=== PATIENT | female | born 1990 | race American Indian/Alaskan Native ===

== ENCOUNTER 2017-05-07 20:01 | Emergency (ER) | payer MEDICAID, OTHER ==
[2017-05-07 20:01] VITALS: BMI 21.2
[2017-05-07 20:33] VITALS: RESP 16; TEMP 98
--- NOTE | 2017-05-07 21:25 | ED PDOC ---
Arrival/HPI - General Chief Complaint: Female Genitourinary Time Seen by Provider: 05/07/17 21:05 - History of Present Illness Narrative History of Present Illness (Text): 26 y/o F p/w lower abdominal pain in . Patient states she walked up a big hill and after taking a nap, woke up with pain in the L lower abdomen, sharp, worse with movement, constant. Denies bleeding, dysuria, new vomiting, bowel movement changes. No US yet for this , estimates 8 weeks . Past Medical History - Past History Past History: No Previous - Infectious Disease Hx of Infectious Diseases: None - Tetanus Immunization Tetanus Immunization: Unknown - Past Medical History Past Medical History: No Previous - Integumentary Hx Psoriasis: Yes - Musculoskeletal/Rheumatological Hx Musculoskeletal Disorders: No - Psychiatric Hx Depression: No Hx Emotional Abuse: No Hx Physical Abuse: No Hx Substance Use: No - Past Surgical History Past Surgical History: No Previous - Anesthesia Hx Anesthesia: No - Suicidal Assessment Feels Threatened In Home Enviroment: No Family/Social History Family/Social History: No Known Family HX Smoking Status: Never Smoked Hx Alcohol Use: No Hx Substance Use: No Allergies/Home Meds Allergies/Adverse Reactions: Allergies shellfish derived Allergy (Verified 05/07/17 20:30) ANAPHYLAXIS seafood Allergy (Uncoded 05/07/17 20:30) ANGIOEDEMA Home Medications: Home Meds Medication Instructions Recorded Confirmed Vit No.126/Iron/Folic 1 tab PO DAILY 05/07/17 05/07/17 [Classic Tablet] Review of Systems - Physician Review All systems were reviewed & negative as marked: Yes - Review of Systems Constitutional: absent: Fevers Cardiovascular: absent: Chest Pain Physical Exam - Physical Exam Narrative Physical Exam (Text): 05/07/17 21:25 Constitutional: No acute distress. Head: Normocephalic. Atraumatic. Eyes: PERRL. ENT: Moist mucous membranes. Neck: Supple. Cardiovascular: Regular rate. Chest: No tenderness. Respiratory: Clear to auscultation bilaterally. GI: Soft. Nontender. Nondistended. Back: No CVA tenderness. Musculoskeletal: No tenderness or swelling of extremities. Skin: No rash. Neurologic: Alert, no focal deficit. Vital Signs Temp Pulse Resp BP Pulse Ox 05/07/17 20:30 98.0 F 86 16 109/72 100 Medical Decision Making ED Course and Treatment: 05/07/17 21:25 Plan: -- Labs -- Urine Culture -- Urinalysis -- OB Transvaginal US -- Reassess and disposition Progress Notes: EXAM: US , Transvaginal Dictated and Authenticated by: Aspen Spears MD 05/08/2017 12:25 AM IMPRESSION: Single live IUP - Lab Interpretations Lab Results: 05/07/17 21:35 05/07/17 21:35 Lab Results 05/08/17 00:40: Urine Color Yellow, Urine Appearance Clear, Urine pH 7.5, Ur Specific [place] 1.015, Urine Protein Negative, Urine Glucose (UA) Negative, Urine Ketones Negative, Urine Blood Negative, Urine Nitrate Negative, Urine Bilirubin Negative, Urine Urobilinogen 0.2, Ur Leukocyte Esterase Negative 05/07/17 22:50: Blood Type B POSITIVE, Antibody Screen Negative, BBK History Checked Patient has bt 05/07/17 21:35: Beta HCG, Quant 96061.00 H 05/07/17 21:35: Sodium 137, Potassium 3.8, Chloride 100, Carbon Dioxide 28, Anion Gap 13, BUN 11, Creatinine 0.5 L, Est GFR ( Amer) > 60, Est GFR ( Non-Af Amer) > 60, Random Glucose 87, Calcium 9.7, Total Bilirubin 0.2, AST 26, ALT 23, Alkaline Phosphatase 53, Total Protein 7.5, Albumin 4.4, Globulin 3.1, Albumin/Globulin Ratio 1.4, Lipase 143 05/07/17 21:35: WBC 9.4 D, RBC 3.69, Hgb 11.3 L, Hct 33.4 L, MCV 90.5, MCH 30.6 , MCHC 33.8, RDW 13.5, Plt Count 218, MPV 10.4, Gran % 64.5, Lymph % (Auto) 26.4 , [place] % (Auto) 7.2 H, Eos % (Auto) 1.7, Baso % (Auto) 0.2, Gran # 6.03, Lymph # 2.5, [place] # 0.7 H, Eos # 0.2, Baso # 0.02 - RAD Interpretation Radiology Orders: 05/07/17 21:15 OB TRANSVAGINAL [US] Stat Disposition/Present on Arrival - Present on Arrival Any Indicators Present on Arrival: No History of DVT/PE: No History of Uncontrolled Diabetes: No Urinary Catheter: No History of Decub. Ulcer: No History Surgical Site Infection Following: None - Disposition Have Diagnosis and Disposition been Completed?: Yes Diagnosis: Abdominal wall strain Disposition: HOME/ ROUTINE Disposition Time: 01:01 Patient Plan: Discharge Condition: STABLE Discharge Instructions (ExitCare): Abdominal Pain in (ED) Referrals: Luba Da Silva MD [Primary Care Provider] - Follow up with primary Forms: frenting (Chinese)
[2017-05-07 21:55] LABS: BASO # 0.02 K/mm3 (0.0-2.0); BASO % 0.2 % (0.0-3.0); EOS # 0.2 (0.0-0.7); EOS % 1.7 % (1.5-5.0); GRAN # 6.03 (1.4-6.5); GRAN % 64.5 % (50.0-68.0); HEMOGLOBIN 11.3 g/dL (12.0-16.0); LYMPH # 2.5 (1.2-3.4); LYMPH % 26.4 % (22.0-35.0); MEAN CELL VOLUME 90.5 fl (80.0-105.0); MEAN CORPUSCULAR HEMOGLOBIN 30.6 pg (25.0-35.0); MEAN CORPUSCULAR HGB CONC 33.8 g/dl (31.0-37.0); MEAN PLATELET VOLUME 10.4 fl (7.0-11.0); MONO # 0.7 (0.1-0.6); MONO % 7.2 % (1.0-6.0); RBC 3.69 10^6/uL (3.5-6.1); RED CELL DISTRIBUTION WIDTH 13.5 % (11.5-14.5); WHITE BLOOD COUNT 9.4 10^3/ul (4.5-11.0)
[2017-05-07 21:59] LABS: ALB/GLOB RATIO 1.4 (1.1-1.8); ALBUMIN 4.4 g/dL (3.0-4.8); ALT/SGPT 23 U/L (7-56); AST/SGOT 26 U/L (14-36); BLOOD UREA NITROGEN 11 mg/dL (7-21); CALCIUM 9.7 mg/dL (8.4-10.5); GFR AFRICAN-AMERICAN > 60; GFR NON-AFRICAN AMERICAN > 60; LIPASE 143 U/L (23-300)
--- NOTE | 2017-05-08 00:25 | US ---
EXAM: US , Transvaginal EXAM DATE/TIME: 05/07/2017 9:15 PM CLINICAL HISTORY: 26 years old, female; Pain; complicated by abdominal or pelvic pain; Lower; First trimester; Gestational age or lmp: 10wks; ; Additional info: Abd pain in TECHNIQUE: Real-time transvaginal obstetrical ultrasound of the maternal pelvis and a first trimester with image documentation. Transvaginal imaging was used for better evaluation of the fetus and adnexa. COMPARISON: US - TRANSVAGINAL 2016-01-02 17:52 FINDINGS: The uterus measures 12 x 7 x 9 cm. There is an intrauterine gestational sac containing a yolk sac and pole. Measurements correspond to a gestational age of 10 weeks 2 days. A heart rate of 169-185 beats per minute was obtained. The maternal right ovary is normal with vascular flow demonstrated. The maternal left ovary is not seen. There is no significant free fluid. IMPRESSION: Single live IUP.
[2017-05-08 00:52] LABS: PH,URINE 7.5 (4.7-8.0); URINE BILIRUBIN NEGATIVE (NEGATIVE); URINE BLOOD NEGATIVE (NEGATIVE); URINE GLUCOSE (UA) NEGATIVE (NEGATIVE); URINE LEUKOCYTE ESTERASE NEGATIVE Leu/uL (NEGATIVE); URINE NITRATE NEGATIVE (NEGATIVE); URINE PROTEIN NEGATIVE mg/dL (<30 mg/dL); URINE UROBILINOGEN 0.2 E.U./dL (<1 E.U./dL)
[2017-05-08 00:57] LABS: URINE APPEARANCE CLEAR (CLEAR); URINE COLOR YELLOW (YELLOW)
[2017-05-08 04:46] VITALS: BP 111/71; PULSE 82; O2SAT 100
== END 2017-05-08 01:15 | disposition home or self-care (01) ==
LOC: ED 20:01
DX: O26.891 Other specified pregnancy related conditions, first trimester (principal); S39.011A Strain of muscle, fascia and tendon of abdomen, initial encounter; Z3A.10 10 weeks gestation of pregnancy; X58.XXXA Exposure to other specified factors, initial encounter

== ENCOUNTER 2018-09-02 20:03 | Emergency (ER) | payer MEDICAID, OTHER ==
[2018-09-02 20:12] VITALS: BMI 28.3
[2018-09-02 20:31] VITALS: RESP 16; TEMP 98.6
--- NOTE | 2018-09-02 22:15 | ED PDOC ---
Arrival/HPI - General Chief Complaint: Chest Pain Time Seen by Provider: 09/02/18 20:08 Historian: Patient - History of Present Illness Narrative History of Present Illness (Text): 09/02/18 22:12 A 27 year old female presents to the emergency department complaining of sore throat for 3 days. Patient reports she has a history of tonsilloliths and thought the white spots on tonisils was a recurrence of them. Notes also experiencing pain with swallowing. She has taken no medications at home. Patient denies any fever, chills, dizziness, weakness, cough, nausea, vomiting, diarrhea, abdominal pain, or any other complaints at this time. Also, she notes last week experiencing intermittent, sharp left-side chest pain. Patient states she has had no chest pain for the past 4 days. Past Medical History - Provider Review Nursing Documentation Reviewed: Yes - Past History Past History: No Previous - Infectious Disease Hx of Infectious Diseases: None - Tetanus Immunization Tetanus Immunization: Unknown - Past Medical History Past Medical History: No Previous - Cardiac Hx Cardiac Disorders: No Hx Hypertension: No - Integumentary Hx Psoriasis: Yes - Musculoskeletal/Rheumatological Hx Musculoskeletal Disorders: No - Psychiatric Hx Depression: No Hx Substance Use: No - Past Surgical History Past Surgical History: No Previous - Anesthesia Hx Anesthesia: No - Suicidal Assessment Feels Threatened In Home Enviroment: No Family/Social History - Physician Review Nursing Documentation Reviewed: Yes Family/Social History: No Known Family HX Smoking Status: Never Smoked Hx Alcohol Use: No Hx Substance Use: No Allergies/Home Meds Allergies/Adverse Reactions: Allergies shellfish derived Allergy (Verified 09/02/18 20:11) ANAPHYLAXIS seafood Allergy (Uncoded 09/02/18 20:11) ANGIOEDEMA Home Medications: Home Meds Medication Instructions Recorded Confirmed Vit No.126/Iron/Folic 1 tab PO DAILY 05/07/17 11/29/17 [Classic Tablet] Review of Systems - Physician Review All systems were reviewed & negative as marked: Yes - Review of Systems Constitutional: absent: Fatigue, Fevers, Night Sweats, Other (no weakness) ENT: Sore Throat. absent: Sinus Congestion Respiratory: absent: Cough Cardiovascular: Chest Pain. absent: Palpitations Gastrointestinal: absent: Abdominal Pain, Diarrhea, Nausea, Vomiting Genitourinary Female: absent: Dysuria, Frequency, Hematuria Musculoskeletal: absent: Arthralgias, Back Pain, Neck Pain Skin: absent: Rash, Pruritis Neurological: absent: Headache, Dizziness Psychiatric: absent: Anxiety, Depression Physical Exam Vital Signs Reviewed: Yes Vital Signs Temp Pulse Pulse Resp BP BP Pulse Ox 09/02/18 20:31 98.6 F 89 16 119/71 100 09/02/18 20:15 88 119/71 Blood Pressure: Normal Pulse: Regular Respiratory Rate: Normal Appearance: Positive for: Well-Appearing, Non-Toxic, Comfortable Pain Distress: None Mental Status: Positive for: Alert and Oriented X 3 - Systems Exam Head: Present: Atraumatic, Normocephalic Conjunctiva: Present: Normal Ears: Present: Normal, NORMAL TM. No: Erythema Mouth: Present: Moist Mucous Membranes. No: Dry, Drooling Pharnyx: Present: ERYTHEMA, EXUDATE (tonsillar exudates bilaterally). No: TONSILS ENLARGED, Peritonsilar Swelling, Uvular Deviation, Muffled/Hoarse Voice, Soft Palate/Uvular Edema Nose (External): Present: Atraumatic Nose (Internal): Present: Normal Inspection Neck: Present: Normal Range of Motion. No: Lymphadenopathy Respiratory/Chest: Present: Clear to Auscultation, Good Air Exchange. No: Respiratory Distress, Accessory Muscle Use Cardiovascular: Present: Regular Rate and Rhythm, Normal S1, S2. No: Murmurs Abdomen: No: Tenderness, Distention, Peritoneal Signs Upper Extremity: Present: Normal Inspection. No: Cyanosis, Edema Lower Extremity: Present: Normal Inspection. No: Edema Neurological: Present: GCS=15, Speech Normal Skin: Present: Warm, Dry, Normal Color. No: Rashes Psychiatric: Present: Alert, Oriented x 3 Medical Decision Making ED Course and Treatment: 09/02/18 22:15 27 year old female with sore throat. Plan: -- EKG -- Chest X-ray -- Tylenol -- Amoxicillin -- Reassess and disposition Progress Notes: Patient is nontoxic well appearing in no distress. Vital signs are stable Tolerating p.o. fluids and solids Patient reassessment: Patient feeling better after medications, vital signs stable. Moist mucous membranes. EKG Normal sinus rhythm at 88 bpm normal axis normal intervals no ST elevations Chest x-ray: No infiltrate or effusion no cardiomegaly I advised follow up with primary care physician within the next 2 days, advised to increase fluids take medications as prescribed and return if symptoms worsen persist or if new symptoms develop Patient verbalizes understanding of discharge instructions and need for immediate followup. All aspects of this case were discussed the attending of record. IMPRESSION; pharyngitis Motrin every 6 hours as needed for pain/fever reduction Increase fluids Amoxicillin 3 times daily x10 days Follow up primary care physician within the next 2 days Saltwater gargles, throat lozenges Return if symptoms worsen persist or if new symptoms develop 09/03/18 02:37 - RAD Interpretation Radiology Orders: 09/02/18 21:23 CHEST PORTABLE [RAD] Stat - Medication Orders Current Medication Orders: Discontinued Medications Acetaminophen (Tylenol 325mg Tab) 975 mg PO STAT STA Stop: 09/02/18 21:25 Last Admin: 09/02/18 21:42 Dose: 975 mg MAR Pain/Vitals Document 09/02/18 21:42 KV (Rec: 09/02/18 21:42 KV [id number]) Pain Reassessment Is This A Pain ReAssessment? No Sleep Is patient sleeping during reassessment? No Presence of Pain Presence of Pain Yes Pain Scale Used Protocol: PSCALES Pain Scale Used Numeric Location Pain Location Body Site Throat Description Constant Intensity 6 Scale Used Numeric Amoxicillin (Amoxil 500 Mg Cap) 500 mg PO STAT STA; Protocol Stop: 09/02/18 21:25 Last Admin: 09/02/18 21:40 Dose: 500 mg - Scribe Statement The provider has reviewed the documentation as recorded by the Christ Villarreal Provider Scribe Attestation: All medical record entries made by the Scribe were at my direction and pe rsonally dictated by me. I have reviewed the chart and agree that the record accurately reflects my personal performance of the history, physical exam, medical decision making, and the department course for this patient. I have also personally directed, reviewed, and agree with the discharge instructions and disposition. Disposition/Present on Arrival - Present on Arrival Any Indicators Present on Arrival: No History of DVT/PE: No History of Uncontrolled Diabetes: No Urinary Catheter: No History of Decub. Ulcer: No History Surgical Site Infection Following: None - Disposition Have Diagnosis and Disposition been Completed?: Yes Diagnosis: Pharyngitis Disposition: HOME/ ROUTINE Disposition Time: 22:15 Patient Plan: Discharge Condition: GOOD Discharge Instructions (ExitCare): Sore Throat, Adult (DC) Additional Instructions: Motrin every 6 hours as needed for pain/fever reduction Increase fluids Amoxicillin 3 times daily x10 days Follow up primary care physician within the next 2 days Saltwater gargles, throat lozenges Return if symptoms worsen persist or if new symptoms develop Prescriptions: Amoxicillin 500 mg PO TID #30 tab Ibuprofen [Motrin] 600 mg PO Q6H PRN #20 tab PRN Reason: pain/fever reduction Referrals: Luba Da Silva MD [Primary Care Provider] - Follow up with primary Maurilio Selby DO [Staff Provider] - Follow up with primary Forms: [employer] ([place]ian), WORK NOTE
[2018-09-02 23:08] VITALS: BP 114/65; PULSE 84; O2SAT 99
--- NOTE | 2018-09-03 09:28 | CARD ---
APPROVED REPORT Date of service: 09/02/2018 EKG Measurement Heart [id number] <Conclusion> Normal sinus rhythm Normal ECG
--- NOTE | 2018-09-03 11:00 | RAD ---
Date of service: 09/02/2018 HISTORY: chest pain last week COMPARISON: No prior. TECHNIQUE: 1 view obtained. FINDINGS: LUNGS: No active pulmonary disease. PLEURA: No significant pleural effusion identified, no pneumothorax apparent. CARDIOVASCULAR: No aortic atherosclerotic calcification present. Normal cardiac size. No pulmonary vascular congestion. OSSEOUS STRUCTURES: No significant abnormalities. VISUALIZED UPPER ABDOMEN: Normal. OTHER FINDINGS: None. IMPRESSION: No active disease.
== END 2018-09-02 23:08 | disposition home or self-care (01) ==
LOC: ED 20:03
DX: J02.9 Acute pharyngitis, unspecified (principal)